=== PATIENT | female | born 1995 | race Caucasian/White ===

== ENCOUNTER 2018-10-18 22:01 | Emergency (ER) | payer OTHER, MEDICAID ==
[~2018-10-18] VITALS: Ht 172.7 cm; Wt 81.7 kg
[2018-10-18 22:58] VITALS: BP 109/58
[2018-10-18] MEDS ORDERED: GARAMYCIN5 ML OPHTHALMIC (23:11)
== END 2018-10-18 23:27 | disposition home or self-care (01) ==
LOC: M.ERS 22:01
DX: H10.9 Unspecified conjunctivitis (principal)

== ENCOUNTER 2018-10-29 12:00 | Emergency (ER) | payer OTHER, MEDICAID ==
[~2018-10-29] VITALS: Ht 172.7 cm; Wt 81.7 kg
[~2018-10-29 12:00] MED LIST: GARAMYCIN5 ML OPHTHALMIC
[2018-10-29 12:30] VITALS: BP 112/47
== END 2018-10-29 12:30 | disposition home or self-care (01) ==
LOC: M.ERS 12:00
DX: H10.13 Acute atopic conjunctivitis, bilateral (principal)

== ENCOUNTER 2019-04-02 09:56 | Emergency (ER) | payer OTHER ==
[~2019-04-02] VITALS: Ht 172.7 cm; Wt 63.5 kg
[2019-04-02] MEDS ORDERED: TRAMADOL 50 MG50 MG PO (10:36)
[2019-04-02] MEDS ORDERED: PENICILLIN VK500 MG PO (10:36)
[2019-04-02] MEDS ORDERED: LORAZEPAM 0.50.5 MG PO (12:11)
[2019-04-02] MEDS ORDERED: HYDROCODON-ACE1 EAC7 PO (12:25)
[2019-04-02 12:27] VITALS: BP 113/73
== END 2019-04-02 12:28 | disposition home or self-care (01) ==
LOC: M.ERS 09:56
DX: K02.9 Dental caries, unspecified (principal); F41.9 Anxiety disorder, unspecified